=== PATIENT | female | born 1965 | race Caucasian/White ===

== ENCOUNTER 2024-05-09 19:12 | Emergency (ER) | payer OTHER ==
[2024-05-09 19:31] VITALS: BP 129/70; PULSE 60; RESP 16; TEMP 98.1; BMI 23.9
[2024-05-09 20:31] LABS: HEMATOCRIT 36.9 % (32.4-45.2); HEMOGLOBIN 12.1 G/dL (10.7-15.3); MCH 29.4 pg (25.7-33.7); MCHC 32.8 g/dl (32.0-36.0); MEAN CELL VOLUME 89.8 fl (80-96); MEAN PLT VOLUME 9.5 fl (7.5-11.1); PLATELET COUNT 165.9 10^3/uL (134-434); RBC 4.11 10^6/uL (3.60-5.2); RDW 13.6 % (11.6-15.6); WHITE BLOOD COUNT 7.9 10^3/uL (4.0-10.8)
[2024-05-09 20:37] LABS: PLATELET ESTIMATE ADEQUATE
[2024-05-09 20:56] LABS: ALBUMIN 4.3 g/dl (3.4-5.0); BILIRUBIN,TOTAL 0.2 mg/dl (0.2-1); CALCIUM 8.9 mg/dl (8.5-10.1); CREATININE 0.8 mg/dl (0.6-1.3); POTASSIUM 3.8 mmol/L (3.5-5.1); TOT PROT 6.9 g/dl (6.4-8.2)
== END 2024-05-09 21:48 | disposition home or self-care (01) ==
LOC: FER 19:12
DX: R07.89 Other chest pain (principal)
CPT/HCPCS: 36415; 80053; 84484; 85027; 85379; 93005; 99284-25